=== PATIENT | male | born 2000 | race Hispanic/Latino ===

== ENCOUNTER 2019-06-03 10:52 | Emergency (ER) | payer SELFPAY ==
[~2019-06-03] VITALS: Ht 167.6 cm; Wt 95.3 kg
--- NOTE | 2019-06-03 11:53 | Diagnostic Imaging Report ---
EXAMINATION: CT of the face without contrast HISTORY: Right-sided jaw pain for last 3 days, trauma to the right face, evaluate for mandible fracture COMPARISON: None available TECHNIQUE: Multidetector helical axial images were acquired through the face without contrast and were reconstructed in bone and soft tissue algorithms. Images were viewed in multiplanar format. Dose modulation, iterative reconstruction, and/or weight based adjustment of the mA/kV was utilized to reduce the radiation dose to as low as reasonably achievable. FINDINGS: Bones: -Acute nondisplaced oblique fracture line through the right mandibular subcondylar region with overlying soft tissue swelling. -Acute nondisplaced oblique fracture line through the right parasymphyseal region, extending to the alveolar ridge in the 2 in the right mandibular canine and first premolar (in between teeth #27 and 28). Facial soft tissues: Right premandibular and submental soft tissue swelling. Paranasal sinuses and drainage pathways: Small retention cyst in the right maxillary sinus. Otherwise the frontal, ethmoidal, sphenoid and maxillary sinuses are clear. The ostiomeatal units, fronto-nasal and spheno-ethmoidal recesses are clear. Orbits contents: Unremarkable. Nasal septum: Midline. Anatomic variations: No significant anatomic variations. Dentition: No acute abnormality of the visualized teeth. IMPRESSION: 1. Acute nondisplaced right mandibular subcondylar fracture. 2. Acute nondisplaced right parasymphyseal mandibular fracture. 3. Right premandibular and submental soft tissue swelling. Signed by: Dr. Valerie Modi M.D. on 06/03/2019 11:50 AM
[2019-06-03] MEDS ORDERED: ULTRAM50 MG PO (12:20)
[2019-06-03] MEDS ORDERED: AUGMENTIN 875-1 EACH PO (12:20)
--- NOTE | 2019-06-03 12:42 | NUR ---
left before getting his ct after told to wait.
== END 2019-06-03 12:43 | disposition home or self-care (01) ==
LOC: ER 10:52
DX: S02.641A Fracture of ramus of right mandible, initial encounter for closed fracture (principal); Y04.0XXA Assault by unarmed brawl or fight, initial encounter; Y92.008 Other place in unspecified non-institutional (private) residence as the place of occurrence of the external cause
CPT/HCPCS: 70486; 99283